=== PATIENT | female | born 1975 | race Caucasian/White ===

== ENCOUNTER 2018-01-24 14:58 | Emergency (ER) | payer MEDICAID ==
[~2018-01-24] VITALS: Ht 167.6 cm; Wt 78.5 kg
[2018-01-24 15:00] VITALS: BP 137/96
[2018-01-24] MEDS ORDERED: GUAI473S11 PO (15:53)
[2018-01-24] MEDS ORDERED: BENZ-16 PO (15:53)
== END 2018-01-24 16:03 | disposition home or self-care (01) ==
LOC: ER 14:59
DX: R05 Cough (principal); R07.81 Pleurodynia; F17.200 Nicotine dependence, unspecified, uncomplicated; J45.909 Unspecified asthma, uncomplicated; Z90.49 Acquired absence of other specified parts of digestive tract; Z90.710 Acquired absence of both cervix and uterus; Z98.51 Tubal ligation status; Z98.890 Other specified postprocedural states; Z88.5 Allergy status to narcotic agent; Z88.8 Allergy status to other drugs, medicaments and biological substances; Z79.899 Other long term (current) drug therapy
CPT/HCPCS: 71046; 99284